=== PATIENT | male | born 1995 | race Caucasian/White ===

== ENCOUNTER 2017-03-18 22:58 | Emergency (ER) | payer OTHER ==
[2017-03-18 23:04] VITALS: BP 117/63; PULSE 62; RESP 16; TEMP 98.6; O2SAT 97
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
== END 2017-03-18 23:49 | disposition home or self-care (01) ==
DX: S00.33XA Contusion of nose, initial encounter (principal); W50.0XXA Accidental hit or strike by another person, initial encounter; Y99.8 Other external cause status